=== PATIENT | female | born 1980 | race American Indian/Alaskan Native ===

== ENCOUNTER 2017-03-13 10:36 | Emergency (ER) | payer MEDICAID ==
[2017-03-13 11:00] VITALS: BP 156/97
[2017-03-13 11:25] LABS: Basophils % (Auto) 1.1 % (0.0-1.8); Eosinophils % (Auto) 2.8 % (0.0-4.3); Hematocrit 39.7 % (30.3-42.9); Hemoglobin 13.2 gm/dl (10.1-14.3); Mean Corpuscular HGB Conc 33 % (30-34); Mean Corpuscular Hemoglobin 32 pg (28-32); Mean Corpuscular Volume 96 fl (79-97); Platelet Count 254 K/mm3 (140-440); Red Blood Count 4.12 M/mm3 (3.65-5.03); Red Cell Distribution Width 13.6 % (13.2-15.2)
[2017-03-13 11:37] LABS: Alanine Aminotransferase 21 units/L (7-56); Albumin 3.9 g/dL (3.9-5); Albumin/Globulin Ratio 1.3 %; Alkaline Phosphatase 53 units/L (35-129); Anion Gap 18 mmol/L; BUN/Creatinine Ratio 18.33; Blood Urea Nitrogen 11 mg/dL (7-17); Calcium 8.7 mg/dL (8.4-10.2); Carbon Dioxide 21 mmol/L (22-30); Chloride 106.1 mmol/L (98-107); Glucose 90 mg/dL (65-100); Lipase 23 units/L (13-60); Potassium 3.9 mmol/L (3.6-5.0); Sodium 141 mmol/L (137-145); Total Protein 6.9 g/dL (6.3-8.2)
[2017-03-13 12:16] LABS: Bilirubin,Urine NEG (Negative); Blood,Urine NEG (Negative); Ketones,Urine NEG (Negative); Leukocyte Esterase,Urine TR (Negative); Mucus,Urine FEW /HPF; Nitrite,Urine NEG (Negative); Protein,Urine <15 mg/dL mg/dL (Negative)
== END 2017-03-13 12:30 | disposition left against medical advice (07) ==
LOC: ED 10:36
DX: R10.9 Unspecified abdominal pain (principal); Z53.21 Procedure and treatment not carried out due to patient leaving prior to being seen by health care provider
CPT/HCPCS: 36415; 80053; 81001; 83690; 84703; 85025

== ENCOUNTER 2018-03-02 21:20 | Emergency (ER) | payer MEDICAID ==
[2018-03-02 22:14] VITALS: BP 132/71
[2018-03-03] MEDS ORDERED: PERCOCET 5/325 PO ONE (03:01)
[2018-03-03] MEDS ORDERED: PERCOCET 5/325 ONE (03:04)
--- NOTE | 2018-03-03 03:33 | Emergency Department Report ---
ED ENT HPI - General Chief complaint: Dental/Oral Stated complaint: TOOTHACHE, LEFT SIDED SWELLING AND PAIN Time Seen by Provider: 03/03/18 03:28 Source: family Mode of arrival: Ambulatory Limitations: No Limitations - History of Present Illness Initial comments: 37-year-old -Citizen Of [place] female comes in complaining of dental pain that she has off and on for the last 3 years. 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 Patient denies any fever or chills no nausea no vomiting. She does report that the pain often keeps her up at night. She reports she is tried [id number] Tylenol and ibuprofen which she reports does not help much for pain. Patient reports the pain is probably an sharp in nature at times. MD complaint: tooth pain -: year(s) (3) Location: tooth # (10,11) Severity scale (0 -10): 8 Quality: stabbing, other (throbbing) Consistency: intermittent Worsens with: eating Context- Dental: history of dental caries, poor dental care Associated Symptoms: gum swelling, toothache - Related Data Home Medications Medication Instructions Recorded Confirmed Last Taken Diphenhydramine HCl [Sleep-Aid] 25 mg PO 04/27/13 04/29/13 04/28/13 23:00 Previous Rx's Medication Instructions Recorded Last Taken Type Ibuprofen [Motrin] 800 mg PO Q8H PRN #20 tablet 02/27/14 Unknown Rx Cyclobenzaprine [Flexeril 10mg] 10 mg PO TID PRN #14 tablet 08/23/14 Unknown Rx HYDROcodone/APAP 5-325 [[place] 1 each PO Q6HR PRN #14 tablet 08/23/14 Unknown Rx 5-325 mg TAB] Ibuprofen [Motrin 800 MG tab] 800 mg PO Q8HR PRN #30 tablet 03/03/18 Unknown Rx Penicillin Vk [Veetids TAB] 250 mg PO QID #40 tablet 03/03/18 Unknown Rx traMADol [Ultram 50 MG tab] 50 mg PO Q4HR PRN #12 tablet 03/03/18 Unknown Rx Allergies Allergy/AdvReac Type Severity Reaction Status Date / Time No Known Allergies Allergy Unverified 04/29/13 10:33 ED Dental HPI - General Chief complaint: Dental/Oral Stated complaint: TOOTHACHE, LEFT SIDED SWELLING AND PAIN Time Seen by Provider: 03/03/18 03:28 Source: family Mode of arrival: Ambulatory Limitations: No Limitations - Related Data Home Medications Medication Instructions Recorded Confirmed Last Taken Diphenhydramine HCl [Sleep-Aid] 25 mg PO 04/27/13 04/29/13 04/28/13 23:00 Previous Rx's Medication Instructions Recorded Last Taken Type Ibuprofen [Motrin] 800 mg PO Q8H PRN #20 tablet 02/27/14 Unknown Rx Cyclobenzaprine [Flexeril 10mg] 10 mg PO TID PRN #14 tablet 08/23/14 Unknown Rx HYDROcodone/APAP 5-325 [[place] 1 each PO Q6HR PRN #14 tablet 08/23/14 Unknown Rx 5-325 mg TAB] Ibuprofen [Motrin 800 MG tab] 800 mg PO Q8HR PRN #30 tablet 03/03/18 Unknown Rx Penicillin Vk [Veetids TAB] 250 mg PO QID #40 tablet 03/03/18 Unknown Rx traMADol [Ultram 50 MG tab] 50 mg PO Q4HR PRN #12 tablet 03/03/18 Unknown Rx Allergies Allergy/AdvReac Type Severity Reaction Status Date / Time No Known Allergies Allergy Unverified 04/29/13 10:33 ED Review of Systems ROS: Stated complaint: TOOTHACHE, LEFT SIDED SWELLING AND PAIN Other details as noted in HPI Comment: All other systems reviewed and negative ENT: dental pain ED Past Medical Hx - Past Medical History Hx Hypertension: No Hx Heart Attack/AMI: No Hx Liver Disease: No Hx Renal Disease: No Hx Sickle Cell Disease: No Hx Headaches / Migraines: Yes Hx Seizures: No Hx Psychiatric Treatment: Yes (depression, anxiety,PTSD) Hx Asthma: No Hx COPD: No Additional medical history: Obesity - Surgical History Hx Pacemaker: No Hx Internal Defibrillator: No Additional Surgical History: D&C X 2, ESure surgery - Social History Smoking Status: Current Every Day Smoker Substance Use Type: None - Medications Home Medications: Home Medications Medication Instructions Recorded Confirmed Last Taken Type Diphenhydramine HCl [Sleep-Aid] 25 mg PO 04/27/13 04/29/13 04/28/13 23:00 History Ibuprofen [Motrin] 800 mg PO Q8H PRN #20 tablet 08/02/14 Unknown Rx Cyclobenzaprine [Flexeril 10mg] 10 mg PO TID PRN #14 tablet 08/23/14 Unknown Rx HYDROcodone/APAP 5-325 [[place] 1 each PO Q6HR PRN #14 tablet 08/23/14 Unknown Rx 5-325 mg TAB] Ibuprofen [Motrin 800 MG tab] 800 mg PO Q8HR PRN #30 tablet 03/03/18 Unknown Rx Penicillin Vk [Veetids TAB] 250 mg PO QID #40 tablet 03/03/18 Unknown Rx traMADol [Ultram 50 MG tab] 50 mg PO Q4HR PRN #12 tablet 03/03/18 Unknown Rx ED Physical Exam - General Limitations: No Limitations General appearance: alert, in no apparent distress - Head Head exam: Present: atraumatic, normocephalic - ENT ENT exam: Present: mucous membranes moist - Expanded ENT Exam Expanded Teeth exam: Present: dental caries, gingival enlargement Throat exam: Negative: tonsillar erythema, tonsillomegaly - Neck Neck exam: Present: full ROM. Absent: tenderness, lymphadenopathy ED Course Vital Signs 03/02/18 22:09 Temperature 98.5 F Pulse Rate 84 Respiratory 16 Rate Blood Pressure 132/71 O2 Sat by Pulse 100 Oximetry ED Medical Decision Making - Medical Decision Making Patient has been evaluated at this provider fast track. Patient's given pain medication for pain management. Discharge patient home on penicillin and tramadol and ibuprofen and referral to dentistry. Critical care attestation.: If time is entered above; I have spent that time in minutes in the direct care of this critically ill patient, excluding procedure time. ED Disposition Clinical Impression: Dental abscess Disposition: DC- TO HOME OR SELFCARE Is pt being admited?: No Does the pt Need Aspirin: No Condition: Stable Instructions: Dental Abscess (ED), Trench Mouth (ED), Gingivitis (ED) Additional Instructions: These complete antibiotics as prescribed. Take pain medication as needed. Very importantly to follow up with dentistry as this is a chronic issue. Prescriptions: Ibuprofen [Motrin 800 MG tab] 800 mg PO Q8HR PRN #30 tablet PRN Reason: Pain Penicillin Vk [Veetids TAB] 250 mg PO QID #40 tablet traMADol [Ultram 50 MG tab] 50 mg PO Q4HR PRN #12 tablet PRN Reason: Pain Referrals: PRIMARY CARE, [Primary Care Provider] - 3-5 Days [facility] [Outside] - 3-5 Days [facility] [Outside] - 3-5 Days
== END 2018-03-03 03:28 | disposition home or self-care (01) ==
LOC: ED 21:20
DX: K04.7 Periapical abscess without sinus (principal); G43.909 Migraine, unspecified, not intractable, without status migrainosus; F17.200 Nicotine dependence, unspecified, uncomplicated
CPT/HCPCS: 99282

== ENCOUNTER 2018-03-08 13:57 | Emergency (ER) | payer MEDICAID ==
[2018-03-08 14:14] VITALS: BP 133/89
--- NOTE | 2018-03-08 15:45 | Emergency Department Report ---
ED ENT HPI - General Chief complaint: Dental/Oral Stated complaint: TOOTH ACHE/PAIN Time Seen by Provider: 03/08/18 15:30 Source: patient Mode of arrival: Ambulatory Limitations: No Limitations - History of Present Illness MD complaint: tooth pain (already on antibiotics medication) -: days(s) Severity: moderate Consistency: constant Context- Dental: history of dental caries - Related Data Home Medications Medication Instructions Recorded Confirmed Last Taken Diphenhydramine HCl [Sleep-Aid] 25 mg PO 04/27/13 04/29/13 04/28/13 23:00 Previous Rx's Medication Instructions Recorded Last Taken Type Ibuprofen [Motrin] 800 mg PO Q8H PRN #20 tablet 02/27/14 Unknown Rx Cyclobenzaprine [Flexeril 10mg] 10 mg PO TID PRN #14 tablet 08/23/14 Unknown Rx HYDROcodone/APAP 5-325 [[place] 1 each PO Q6HR PRN #14 tablet 08/23/14 Unknown Rx 5-325 mg TAB] Ibuprofen [Motrin 800 MG tab] 800 mg PO Q8HR PRN #30 tablet 03/03/18 Unknown Rx Penicillin Vk [Veetids TAB] 250 mg PO QID #40 tablet 03/03/18 Unknown Rx traMADol [Ultram 50 MG tab] 50 mg PO Q4HR PRN #12 tablet 03/03/18 Unknown Rx Allergies Allergy/AdvReac Type Severity Reaction Status Date / Time No Known Allergies Allergy Unverified 04/29/13 10:33 ED Dental HPI - General Chief complaint: Dental/Oral Stated complaint: TOOTH ACHE/PAIN Time Seen by Provider: 03/08/18 15:30 Source: patient Mode of arrival: Ambulatory Limitations: No Limitations - Related Data Home Medications Medication Instructions Recorded Confirmed Last Taken Diphenhydramine HCl [Sleep-Aid] 25 mg PO 04/27/13 04/29/13 04/28/13 23:00 Previous Rx's Medication Instructions Recorded Last Taken Type Ibuprofen [Motrin] 800 mg PO Q8H PRN #20 tablet 02/27/14 Unknown Rx Cyclobenzaprine [Flexeril 10mg] 10 mg PO TID PRN #14 tablet 08/23/14 Unknown Rx HYDROcodone/APAP 5-325 [[place] 1 each PO Q6HR PRN #14 tablet 08/23/14 Unknown Rx 5-325 mg TAB] Ibuprofen [Motrin 800 MG tab] 800 mg PO Q8HR PRN #30 tablet 03/03/18 Unknown Rx Penicillin Vk [Veetids TAB] 250 mg PO QID #40 tablet 03/03/18 Unknown Rx traMADol [Ultram 50 MG tab] 50 mg PO Q4HR PRN #12 tablet 03/03/18 Unknown Rx Allergies Allergy/AdvReac Type Severity Reaction Status Date / Time No Known Allergies Allergy Unverified 04/29/13 10:33 ED Review of Systems ROS: Stated complaint: TOOTH ACHE/PAIN Other details as noted in HPI Comment: All other systems reviewed and negative Constitutional: denies: chills, fever Respiratory: denies: cough, orthopnea, shortness of breath Cardiovascular: denies: chest pain Neurological: denies: headache, weakness ED Past Medical Hx - Past Medical History Hx Hypertension: No Hx Heart Attack/AMI: No Hx Liver Disease: No Hx Renal Disease: No Hx Sickle Cell Disease: No Hx Headaches / Migraines: Yes Hx Seizures: No Hx Psychiatric Treatment: Yes (depression, anxiety,PTSD) Hx Asthma: No Hx COPD: No Additional medical history: Obesity - Surgical History Hx Pacemaker: No Hx Internal Defibrillator: No Additional Surgical History: D&C X 2, ESure surgery - Social History Smoking Status: Current Every Day Smoker Substance Use Type: None - Medications Home Medications: Home Medications Medication Instructions Recorded Confirmed Last Taken Type Diphenhydramine HCl [Sleep-Aid] 25 mg PO 04/27/13 04/29/13 04/28/13 23:00 History Ibuprofen [Motrin] 800 mg PO Q8H PRN #20 tablet 02/27/14 Unknown Rx Cyclobenzaprine [Flexeril 10mg] 10 mg PO TID PRN #14 tablet 08/23/14 Unknown Rx HYDROcodone/APAP 5-325 [[place] 1 each PO Q6HR PRN #14 tablet 08/23/14 Unknown Rx 5-325 mg TAB] Ibuprofen [Motrin 800 MG tab] 800 mg PO Q8HR PRN #30 tablet 03/03/18 Unknown Rx Penicillin Vk [Veetids TAB] 250 mg PO QID #40 tablet 03/03/18 Unknown Rx traMADol [Ultram 50 MG tab] 50 mg PO Q4HR PRN #12 tablet 03/03/18 Unknown Rx ED Physical Exam - General Limitations: No Limitations General appearance: alert, in no apparent distress - Head Head exam: Present: atraumatic, normocephalic - ENT ENT exam: Present: other (dental caries multiple teeth) - Respiratory Respiratory exam: Present: normal lung sounds bilaterally - Cardiovascular Cardiovascular Exam: Present: regular rate - GI/Abdominal GI/Abdominal exam: Present: soft. Absent: distended, tenderness, guarding ED Course Vital Signs 03/08/18 14:06 Temperature 98.3 F Pulse Rate 76 Respiratory 16 Rate Blood Pressure 133/89 O2 Sat by Pulse 100 Oximetry Critical care attestation.: If time is entered above; I have spent that time in minutes in the direct care of this critically ill patient, excluding procedure time. ED Disposition Clinical Impression: Dental caries Disposition: DC-01 TO HOME OR SELFCARE Is pt being admited?: No Condition: Stable Instructions: Dental Caries (ED) Referrals: PRIMARY CARE, [Primary Care Provider] - 3-5 Days
== END 2018-03-08 16:03 | disposition home or self-care (01) ==
LOC: ED 13:57
DX: K02.9 Dental caries, unspecified (principal); G43.909 Migraine, unspecified, not intractable, without status migrainosus; F17.200 Nicotine dependence, unspecified, uncomplicated
CPT/HCPCS: 99281

== ENCOUNTER 2018-08-05 12:23 | Emergency (ER) | payer MEDICAID ==
[2018-08-05 12:38] VITALS: BP 149/97
[2018-08-05] MEDS ORDERED: ULTRAM PO ONE (14:09)
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
--- NOTE | 2018-08-05 15:14 | XRay Report ---
LEFT KNEE, 3 views: History: Pain. The bony architecture is intact without evidence of fracture or dislocation. No significant soft tissue abnormality is seen. IMPRESSION: Normal left knee.
--- NOTE | 2018-08-05 15:18 | XRay Report ---
LEFT FOOT, 3 views: History: Pain. The bony architecture is intact. Bony alignment is normal. No soft tissue abnormalities are seen. The joint spaces appear preserved. IMPRESSION: Normal left foot.
== END 2018-08-05 16:02 | disposition home or self-care (01) ==
LOC: ED 12:23
DX: M25.561 Pain in right knee (principal); G43.909 Migraine, unspecified, not intractable, without status migrainosus; F41.9 Anxiety disorder, unspecified; F32.9 Major depressive disorder, single episode, unspecified; F43.10 Post-traumatic stress disorder, unspecified; F17.200 Nicotine dependence, unspecified, uncomplicated; Z79.899 Other long term (current) drug therapy
CPT/HCPCS: 99283

== ENCOUNTER 2019-08-05 22:02 | Inpatient (IN) | payer MEDICAID, OTHER ==
[2019-08-05] MEDS ORDERED: SODIUM CHLORIDE 0.9% 1000 ML 1,000 ML IV ONE (23:23)
--- NOTE | 2019-08-05 23:29 | Emergency Department Report ---
ED Altered Mental Status HPI - General Chief Complaint: Overdose Stated Complaint: AMS Time Seen by Provider: 08/05/19 23:16 Source: family Mode of arrival: Stretcher Limitations: No Limitations - History of Present Illness Initial Comments: Patient is a 38 years old moderately obese female with history of post traumatic stress disorder, depression and anxiety. Patient brought to the emergency room via EMS for evaluation of altered mental status. Patient has been stated that he think that she overdosed on clonidine however patient hospital and did not see patient taking the medication. He stated that she was completely fine just 10 minutes before she went to bed and then he saw a stumbling going to the bathroom with decreased responsiveness. denied any emotional stress or thoughts of suicide by the patient recently. MD Complaint: altered mental status, decreased responsiveness -: hour(s) (3) Severity: moderate - Related Data Home Medications Medication Instructions Recorded Confirmed Last Taken Diphenhydramine HCl [Sleep-Aid] 25 mg PO 04/27/13 04/29/13 04/28/13 23:00 Previous Rx's Medication Instructions Recorded Last Taken Type Ibuprofen [Motrin] 800 mg PO Q8H PRN #20 tablet 02/27/14 Unknown Rx Cyclobenzaprine [Flexeril 10mg] 10 mg PO TID PRN #14 tablet 08/23/14 Unknown Rx HYDROcodone/APAP 5-325 [[place] 1 each PO Q6HR PRN #14 tablet 08/23/14 Unknown Rx 5-325 mg TAB] Ibuprofen [Motrin 800 MG tab] 800 mg PO Q8HR PRN #30 tablet 03/03/18 Unknown Rx Penicillin Vk [Veetids TAB] 250 mg PO QID #40 tablet 03/03/18 Unknown Rx traMADoL [Ultram 50 MG tab] 50 mg PO Q4HR PRN #12 tablet 03/03/18 Unknown Rx Ondansetron [Zofran Odt] 4 mg PO Q8HR PRN #14 tab.rapdis 03/08/18 Unknown Rx traMADoL [Ultram 50 MG tab] 50 mg PO Q4HR PRN #14 tablet 03/08/18 Unknown Rx HYDROcodone/APAP 5-325 [[place] 1 each PO Q6HR PRN #12 tablet 08/05/18 Unknown Rx 5/325] Allergies Allergy/AdvReac Type Severity Reaction Status Date / Time No Known Allergies Allergy Verified 06/16/18 18:35 ED Review of Systems ROS: Stated complaint: AMS Other details as noted in HPI Comment: Unobtainable due to pts medical conditions ED Past Medical Hx - Past Medical History Previous Medical History?: Yes Hx Hypertension: No Hx Heart Attack/AMI: No Hx Liver Disease: No Hx Renal Disease: No Hx Sickle Cell Disease: No Hx Headaches / Migraines: Yes Hx Seizures: No Hx Psychiatric Treatment: Yes (depression, anxiety,PTSD) Hx Asthma: No Hx COPD: No Additional medical history: Obesity - Surgical History Past Surgical History?: Yes Hx Pacemaker: No Hx Internal Defibrillator: No Additional Surgical History: D&C X 2, Essure surgery - Social History Smoking Status: Current Every Day Smoker - Medications Home Medications: Home Medications Medication Instructions Recorded Confirmed Last Taken Type Diphenhydramine HCl [Sleep-Aid] 25 mg PO 04/27/13 04/29/13 04/28/13 23:00 History Ibuprofen [Motrin] 800 mg PO Q8H PRN #20 tablet 02/27/14 Unknown Rx Cyclobenzaprine [Flexeril 10mg] 10 mg PO TID PRN #14 tablet 08/23/14 Unknown Rx HYDROcodone/APAP 5-325 [[place] 1 each PO Q6HR PRN #14 tablet 08/23/14 Unknown Rx 5-325 mg TAB] Ibuprofen [Motrin 800 MG tab] 800 mg PO Q8HR PRN #30 tablet 03/03/18 Unknown Rx Penicillin Vk [Veetids TAB] 250 mg PO QID #40 tablet 03/03/18 Unknown Rx traMADoL [Ultram 50 MG tab] 50 mg PO Q4HR PRN #12 tablet 03/03/18 Unknown Rx Ondansetron [Zofran Odt] 4 mg PO Q8HR PRN #14 tab.rapdis 03/08/18 Unknown Rx traMADoL [Ultram 50 MG tab] 50 mg PO Q4HR PRN #14 tablet 03/08/18 Unknown Rx HYDROcodone/APAP 5-325 [[place] 1 each PO Q6HR PRN #12 tablet 08/05/18 Unknown Rx 5/325] ED Physical Exam - General Limitations: No Limitations General appearance: in no apparent distress, obtunded - Head Head exam: Present: atraumatic, normocephalic, normal inspection - Eye Eye exam: Present: normal appearance - ENT ENT exam: Present: normal exam, normal orophraynx, mucous membranes moist - Neck Neck exam: Present: normal inspection, full ROM. Absent: tenderness, meningismus, lymphadenopathy, thyromegaly - Respiratory Respiratory exam: Present: normal lung sounds bilaterally - Cardiovascular Cardiovascular Exam: Present: regular rate, normal rhythm, normal heart sounds - GI/Abdominal GI/Abdominal exam: Present: soft, normal bowel sounds. Absent: distended, tenderness, guarding, rebound, rigid, organomegaly, mass, bruit, pulsatile mass, hernia - Extremities Exam Extremities exam: Present: normal inspection, full ROM, normal capillary refill. Absent: tenderness, pedal edema, calf tenderness - Back Exam Back exam: Present: normal inspection, full ROM. Absent: CVA tenderness (R), CVA tenderness (L), muscle spasm, paraspinal tenderness, vertebral tenderness - Neurological Exam Neurological exam: Present: altered - Skin Skin exam: Present: warm, intact, normal color ED Course Vital Signs 08/05/19 08/05/19 08/05/19 22:15 22:30 22:45 Temperature 97.8 F Pulse Rate 132 H 136 H 129 H Respiratory 24 22 23 Rate Blood Pressure 132/96 132/56 117/62 Blood Pressure 132/96 [Left] O2 Sat by Pulse 94 95 92 Oximetry 08/05/19 08/05/19 08/05/19 23:00 23:15 23:31 Temperature Pulse Rate 128 H 132 H 127 H Respiratory 25 H 19 25 H Rate Blood Pressure 117/62 129/81 126/86 Blood Pressure [Left] O2 Sat by Pulse 93 95 97 Oximetry 08/05/19 08/06/19 08/06/19 23:45 00:00 00:17 Temperature Pulse Rate 127 H 119 H 116 H Respiratory 21 21 19 Rate Blood Pressure 115/76 128/77 128/77 Blood Pressure [Left] O2 Sat by Pulse 98 99 100 Oximetry 08/06/19 08/06/19 08/06/19 00:30 00:45 01:01 Temperature Pulse Rate 113 H 115 H 117 H Respiratory 20 24 20 Rate Blood Pressure 129/81 136/91 136/91 Blood Pressure [Left] O2 Sat by Pulse 99 99 100 Oximetry 08/06/19 08/06/19 08/06/19 01:15 01:31 03:20 Temperature Pulse Rate 117 H 118 H 121 H Respiratory 22 25 H 25 H Rate Blood Pressure 150/109 154/103 Blood Pressure 135/87 [Left] O2 Sat by Pulse 100 100 100 Oximetry - Lab Data Result diagrams: 08/05/19 23:36 08/05/19 23:36 Lab Results 08/05/19 08/05/19 08/05/19 Range/Units 23:36 23:36 23:36 WBC 10.0 (4.5-11.0) K/mm3 RBC 4.11 (3.65-5.03) M/mm3 Hgb 13.3 (10.1-14.3) gm/dl Hct 38.8 (30.3-42.9) % MCV 94 (79-97) fl MCH 32 (28-32) pg MCHC 34 (30-34) % RDW 14.1 (13.2-15.2) % Plt Count 240 (140-440) K/mm3 Lymph % (Auto) 23.5 (13.4-35.0) % [place] % (Auto) 4.9 (0.0-7.3) % Eos % (Auto) 0.9 (0.0-4.3) % Baso % (Auto) 0.8 (0.0-1.8) % Lymph # 2.3 (1.2-5.4) K/mm3 [place] # 0.5 (0.0-0.8) K/mm3 Eos # 0.1 (0.0-0.4) K/mm3 Baso # 0.1 (0.0-0.1) K/mm3 Seg Neutrophils % 69.9 (40.0-70.0) % Seg Neutrophils # 7.0 (1.8-7.7) K/mm3 PT 13.2 (12.2-14.9) Sec. INR 0.99 (0.87-1.13) APTT 25.2 (24.2-36.6) Sec. D-Dimer 258.10 H (0-234) ng/mlDDU Sodium 139 (137-145) mmol/L Potassium 3.7 (3.6-5.0) mmol/L Chloride 105.4 (98-107) mmol/L Carbon Dioxide 19 L (22-30) mmol/L Anion Gap 18 mmol/L BUN 7 (7-17) mg/dL Creatinine 0.6 L (0.7-1.2) mg/dL Estimated GFR > 60 ml/min BUN/Creatinine Ratio 12 % Glucose 170 H (65-100) mg/dL Lactic Acid (0.7-2.0) mmol/L Calcium 9.2 (8.4-10.2) mg/dL Total Bilirubin 0.20 (0.1-1.2) mg/dL Direct Bilirubin < 0.2 (0-0.2) mg/dL Indirect Bilirubin 0.0 mg/dL AST 21 (5-40) units/L ALT 23 (7-56) units/L Alkaline Phosphatase 62 (35-129) units/L Ammonia (25-60) umol/L Total Creatine Kinase 103 (30-135) units/L Troponin T < 0.010 (0.00-0.029) ng/mL Total Protein 6.4 (6.3-8.2) g/dL Albumin 4.0 (3.9-5) g/dL Albumin/Globulin Ratio 1.7 % HCG, Qual (Negative) Urine Color (Yellow) Urine Turbidity (Clear) Urine pH (5.0-7.0) Ur Specific [place] (1.003-1.030) Urine Protein (Negative) mg/dL Urine Glucose (UA) (Negative) mg/dL Urine Ketones (Negative) mg/dL Urine Blood (Negative) Urine Nitrite (Negative) Urine Bilirubin (Negative) Urine Urobilinogen (<2.0) mg/dL Ur Leukocyte Esterase (Negative) Urine WBC (Auto) (0.0-6.0) /HPF Urine RBC (Auto) (0.0-6.0) /HPF U Epithel Cells (Auto) (0-13.0) /HPF Urine Bacteria (Auto) (Negative) /HPF Urine Mucus /HPF Salicylates (2.8-20.0) mg/dL Urine Opiates Screen Urine Methadone Screen Acetaminophen (10.0-30.0) ug/mL Ur Barbiturates Screen Ur Phencyclidine Scrn Ur Amphetamines Screen U Benzodiazepines Scrn Urine Cocaine Screen U Marijuana (THC) Screen Drugs of Abuse Note Plasma/Serum Alcohol (0-0.07) % 08/05/19 08/05/19 08/05/19 Range/Units 23:36 23:36 23:36 WBC (4.5-11.0) K/mm3 RBC (3.65-5.03) M/mm3 Hgb (10.1-14.3) gm/dl Hct (30.3-42.9) % MCV (79-97) fl MCH (28-32) pg MCHC (30-34) % RDW (13.2-15.2) % Plt Count (140-440) K/mm3 Lymph % (Auto) (13.4-35.0) % [place] % (Auto) (0.0-7.3) % Eos % (Auto) (0.0-4.3) % Baso % (Auto) (0.0-1.8) % Lymph # (1.2-5.4) K/mm3 [place] # (0.0-0.8) K/mm3 Eos # (0.0-0.4) K/mm3 Baso # (0.0-0.1) K/mm3 Seg Neutrophils % (40.0-70.0) % Seg Neutrophils # (1.8-7.7) K/mm3 PT (12.2-14.9) Sec. INR (0.87-1.13) APTT (24.2-36.6) Sec. D-Dimer (0-234) ng/mlDDU Sodium (137-145) mmol/L Potassium (3.6-5.0) mmol/L Chloride (98-107) mmol/L Carbon Dioxide (22-30) mmol/L Anion Gap mmol/L BUN (7-17) mg/dL Creatinine (0.7-1.2) mg/dL Estimated GFR ml/min BUN/Creatinine Ratio % Glucose (65-100) mg/dL Lactic Acid 0.90 (0.7-2.0) mmol/L Calcium (8.4-10.2) mg/dL Total Bilirubin (0.1-1.2) mg/dL Direct Bilirubin (0-0.2) mg/dL Indirect Bilirubin mg/dL AST (5-40) units/L ALT (7-56) units/L Alkaline Phosphatase (35-129) units/L Ammonia 30.0 (25-60) umol/L Total Creatine Kinase (30-135) units/L Troponin T (0.00-0.029) ng/mL Total Protein (6.3-8.2) g/dL Albumin (3.9-5) g/dL Albumin/Globulin Ratio % HCG, Qual (Negative) Urine Color (Yellow) Urine Turbidity (Clear) Urine pH (5.0-7.0) Ur Specific [place] (1.003-1.030) Urine Protein (Negative) mg/dL Urine Glucose (UA) (Negative) mg/dL Urine Ketones (Negative) mg/dL Urine Blood (Negative) Urine Nitrite (Negative) Urine Bilirubin (Negative) Urine Urobilinogen (<2.0) mg/dL Ur Leukocyte Esterase (Negative) Urine WBC (Auto) (0.0-6.0) /HPF Urine RBC (Auto) (0.0-6.0) /HPF U Epithel Cells (Auto) (0-13.0) /HPF Urine Bacteria (Auto) (Negative) /HPF Urine Mucus /HPF Salicylates < 0.3 L (2.8-20.0) mg/dL Urine Opiates Screen Urine Methadone Screen Acetaminophen (10.0-30.0) ug/mL Ur Barbiturates Screen Ur Phencyclidine Scrn Ur Amphetamines Screen U Benzodiazepines Scrn Urine Cocaine Screen U Marijuana (THC) Screen Drugs of Abuse Note Plasma/Serum Alcohol (0-0.07) % 08/05/19 08/05/19 08/05/19 Range/Units 23:36 23:36 23:41 WBC (4.5-11.0) K/mm3 RBC (3.65-5.03) M/mm3 Hgb (10.1-14.3) gm/dl Hct (30.3-42.9) % MCV (79-97) fl MCH (28-32) pg MCHC (30-34) % RDW (13.2-15.2) % Plt Count (140-440) K/mm3 Lymph % (Auto) (13.4-35.0) % [place] % (Auto) (0.0-7.3) % Eos % (Auto) (0.0-4.3) % Baso % (Auto) (0.0-1.8) % Lymph # (1.2-5.4) K/mm3 [place] # (0.0-0.8) K/mm3 Eos # (0.0-0.4) K/mm3 Baso # (0.0-0.1) K/mm3 Seg Neutrophils % (40.0-70.0) % Seg Neutrophils # (1.8-7.7) K/mm3 PT (12.2-14.9) Sec. INR (0.87-1.13) APTT (24.2-36.6) Sec. D-Dimer (0-234) ng/mlDDU Sodium (137-145) mmol/L Potassium (3.6-5.0) mmol/L Chloride (98-107) mmol/L Carbon Dioxide (22-30) mmol/L Anion Gap mmol/L BUN (7-17) mg/dL Creatinine (0.7-1.2) mg/dL Estimated GFR ml/min BUN/Creatinine Ratio % Glucose (65-100) mg/dL Lactic Acid (0.7-2.0) mmol/L Calcium (8.4-10.2) mg/dL Total Bilirubin (0.1-1.2) mg/dL Direct Bilirubin (0-0.2) mg/dL Indirect Bilirubin mg/dL AST (5-40) units/L ALT (7-56) units/L Alkaline Phosphatase (35-129) units/L Ammonia (25-60) umol/L Total Creatine Kinase (30-135) units/L Troponin T (0.00-0.029) ng/mL Total Protein (6.3-8.2) g/dL Albumin (3.9-5) g/dL Albumin/Globulin Ratio % HCG, Qual Negative (Negative) Urine Color (Yellow) Urine Turbidity (Clear) Urine pH (5.0-7.0) Ur Specific [place] (1.003-1.030) Urine Protein (Negative) mg/dL Urine Glucose (UA) (Negative) mg/dL Urine Ketones (Negative) mg/dL Urine Blood (Negative) Urine Nitrite (Negative) Urine Bilirubin (Negative) Urine Urobilinogen (<2.0) mg/dL Ur Leukocyte Esterase (Negative) Urine WBC (Auto) (0.0-6.0) /HPF Urine RBC (Auto) (0.0-6.0) /HPF U Epithel Cells (Auto) (0-13.0) /HPF Urine Bacteria (Auto) (Negative) /HPF Urine Mucus /HPF Salicylates (2.8-20.0) mg/dL Urine Opiates Screen Urine Methadone Screen Acetaminophen < 5.0 L (10.0-30.0) ug/mL Ur Barbiturates Screen Ur Phencyclidine Scrn Ur Amphetamines Screen U Benzodiazepines Scrn Urine Cocaine Screen U Marijuana (THC) Screen Drugs of Abuse Note Plasma/Serum Alcohol < 0.01 (0-0.07) % 08/06/19 08/06/19 Range/Units 01:06 01:06 WBC (4.5-11.0) K/mm3 RBC (3.65-5.03) M/mm3 Hgb (10.1-14.3) gm/dl Hct (30.3-42.9) % MCV (79-97) fl MCH (28-32) pg MCHC (30-34) % RDW (13.2-15.2) % Plt Count (140-440) K/mm3 Lymph % (Auto) (13.4-35.0) % [place] % (Auto) (0.0-7.3) % Eos % (Auto) (0.0-4.3) % Baso % (Auto) (0.0-1.8) % Lymph # (1.2-5.4) K/mm3 [place] # (0.0-0.8) K/mm3 Eos # (0.0-0.4) K/mm3 Baso # (0.0-0.1) K/mm3 Seg Neutrophils % (40.0-70.0) % Seg Neutrophils # (1.8-7.7) K/mm3 PT (12.2-14.9) Sec. INR (0.87-1.13) APTT (24.2-36.6) Sec. D-Dimer (0-234) ng/mlDDU Sodium (137-145) mmol/L Potassium (3.6-5.0) mmol/L Chloride (98-107) mmol/L Carbon Dioxide (22-30) mmol/L Anion Gap mmol/L BUN (7-17) mg/dL Creatinine (0.7-1.2) mg/dL Estimated GFR ml/min BUN/Creatinine Ratio % Glucose (65-100) mg/dL Lactic Acid (0.7-2.0) mmol/L Calcium (8.4-10.2) mg/dL Total Bilirubin (0.1-1.2) mg/dL Direct Bilirubin (0-0.2) mg/dL Indirect Bilirubin mg/dL AST (5-40) units/L ALT (7-56) units/L Alkaline Phosphatase (35-129) units/L Ammonia (25-60) umol/L Total Creatine Kinase (30-135) units/L Troponin T (0.00-0.029) ng/mL Total Protein (6.3-8.2) g/dL Albumin (3.9-5) g/dL Albumin/Globulin Ratio % HCG, Qual (Negative) Urine Color Yellow (Yellow) Urine Turbidity Slightly-cloudy (Clear) Urine pH 5.0 (5.0-7.0) Ur Specific [place] 1.012 (1.003-1.030) Urine Protein <15 mg/dl (Negative) mg/dL Urine Glucose (UA) Neg (Negative) mg/dL Urine Ketones Tr (Negative) mg/dL Urine Blood Neg (Negative) Urine Nitrite Neg (Negative) Urine Bilirubin Neg (Negative) Urine Urobilinogen < 2.0 (<2.0) mg/dL Ur Leukocyte Esterase Tr (Negative) Urine WBC (Auto) 5.0 (0.0-6.0) /HPF Urine RBC (Auto) 1.0 (0.0-6.0) /HPF U Epithel Cells (Auto) 4.0 (0-13.0) /HPF Urine Bacteria (Auto) 1+ (Negative) /HPF Urine Mucus Few /HPF Salicylates (2.8-20.0) mg/dL Urine Opiates Screen Presumptive negative Urine Methadone Screen Presumptive negative Acetaminophen (10.0-30.0) ug/mL Ur Barbiturates Screen Presumptive negative Ur Phencyclidine Scrn Presumptive negative Ur Amphetamines Screen Presumptive negative U Benzodiazepines Scrn Presumptive negative Urine Cocaine Screen Presumptive negative U Marijuana (THC) Screen Presumptive negative Drugs of Abuse Note Disclamer Plasma/Serum Alcohol (0-0.07) % - EKG Data -: EKG Interpreted by Nh EKG shows normal: sinus rhythm Rate: tachycardia Interpretation: no acute changes - Radiology Data Radiology results: report reviewed - Medical Decision Making Patient is a 38 years old moderately obese female with history of post traumatic stress disorder, depression and anxiety. Patient brought to the emergency room via EMS for evaluation of altered mental status. Patient has been stated that he think that she overdosed on clonidine however patient hospital and did not see patient taking the medication. He stated that she was completely fine just 10 minutes before she went to bed and then he saw a stumbling going to the bathroom with decreased responsiveness. denied any emotional stress or thoughts of suicide by the patient recently. Patient remained obtunded except for. Of agitation while she was in the CT scan for which patient received Ativan 2 mg IV. Labs reviewed and is unremarkable including ABG. CT brain is negative for acute finding. CTA chest is negative for pulmonary embolism or any other pathology. Poison control contacted and advised to observe for 24 hours. I discussed the patient with Dr. Ashton, he agreed to admit the patient to [facility] for further management. Critical Care Time: Yes Critical care time in (mins) excluding proc time.: 30 Critical care attestation.: If time is entered above; I have spent that time in minutes in the direct care of this critically ill patient, excluding procedure time. ED Disposition Clinical Impression: Altered mental status, Drug overdose Disposition: [id number] OP ADMIT IP TO THIS HOSP Is pt being admited?: Yes Condition: Stable Referrals: GHANSHYAM BOWENS MD [Primary Care Provider] - 3-5 Days
[2019-08-05 23:53] LABS: Basophils # (Auto) 0.1 K/mm3 (0.0-0.1); Basophils % (Auto) 0.8 % (0.0-1.8); Eosinophils # (Auto) 0.1 K/mm3 (0.0-0.4); Eosinophils % (Auto) 0.9 % (0.0-4.3); Hematocrit 38.8 % (30.3-42.9); Hemoglobin 13.3 gm/dl (10.1-14.3); Lymphocytes # (Auto) 2.3 K/mm3 (1.2-5.4); Lymphocytes % (Auto) 23.5 % (13.4-35.0); Mean Corpuscular HGB Conc 34 % (30-34); Mean Corpuscular Volume 94 fl (79-97); Monocytes # (Auto) 0.5 K/mm3 (0.0-0.8); Monocytes % (Auto) 4.9 % (0.0-7.3); Red Blood Count 4.11 M/mm3 (3.65-5.03); Red Cell Distribution Width 14.1 % (13.2-15.2)
[2019-08-06 00:08] LABS: Platelet Count 240 K/mm3 (140-440)
[2019-08-06 00:11] LABS: Alanine Aminotransferase 23 units/L (7-56); BUN/Creatinine Ratio 12; Blood Urea Nitrogen 7 mg/dL (7-17); Calcium 9.2 mg/dL (8.4-10.2); Hemolysis Index 10
[2019-08-06 00:13] LABS: INR 0.99 (0.87-1.13)
[2019-08-06 00:14] LABS: Partial Thromboplastin Time 25.2 Sec. (24.2-36.6)
[2019-08-06 00:27] LABS: Bilirubin,Direct < 0.2 mg/dL (0-0.2)
[2019-08-06 01:36] LABS: Bacteria,Urine 1+ /HPF (Negative); Bilirubin,Urine NEG (Negative); Blood,Urine NEG (Negative); Color,Urine Yellow (Yellow); Mucus,Urine FEW /HPF; Protein,Urine <15 mg/dL mg/dL (Negative); Urobilinogen,Urine < 2.0 mg/dL (<2.0)
[2019-08-06 01:51] LABS: Amphetamine Screen,Urine PRESUMPTIVE NEGATIVE; Benzodiazepines Screen,Urine PRESUMPTIVE NEGATIVE; Cannabinoid Screen,Urine PRESUMPTIVE NEGATIVE; Cocaine Screen,Urine PRESUMPTIVE NEGATIVE; Methadone Screen,Urine PRESUMPTIVE NEGATIVE; Opiate Screen,Urine PRESUMPTIVE NEGATIVE
[2019-08-06] MEDS ORDERED: LORazepam 2 MG/ML VIAL ONE (01:51)
[2019-08-06] MEDS ORDERED: LORazepam 2 MG/ML VIAL IV ONE (01:52)
--- NOTE | 2019-08-06 02:43 | Cat Scan Report ---
CTA CHEST WITH IV CONTRAST INDICATION: Shortness of breath. TECHNIQUE: Axial CT images were obtained through the chest after injection of IV contrast. Coronal oblique 2-D reconstruction images were produced. 3 plane MIP reconstruction images were produced at an [email or web address] workstation. All CTs at this facility utilize dose reduction techniques including automated expos ure control, iterative reconstruction and weight based dosing when appropriate to reduce patient radi ation dose to as low as reasonable achievable. COMPARISON: None. FINDINGS: Evaluation is somewhat limited due to patient body habitus and timing of contrast bolus. No large ann-marie tral filling defect is seen within the pulmonary arteries to suggest pulmonary embolism. The heart is normal in size. Evaluation of the lung parenchyma demonstrates bibasilar atelectasis. Limited imaging of the upper abdomen demonstrates moderately decreased attenuation of the hepatic par enchyma. Evaluation of bony structures demonstrates no evidence of acute bony abnormality. IMPRESSION: 1. Technically limited study without evidence of pulmonary embolism or acute parenchymal process. Signer Name: Pamela Del Valle MD Signed: 08/06/2019 2:39 AM Workstation Name: [id number]
--- NOTE | 2019-08-06 02:45 | Cat Scan Report ---
Examination: CT of the head without contrast Clinical information: Altered mental status Comparison: None Technical: Multiple axial CT images of the head were obtained without intravenous contrast. Sagittal and coronal reformats were obtained. All CTs at this facility utilize dose reduction techniques inc luding automated exposure control, iterative reconstruction and weight based dosing when appropriate to reduce patient radiation dose to as low as reasonable achievable. Findings: Evaluation is somewhat limited due to patient motion artifact. Given this limitation, no la rge intracranial hemorrhage is visualized. The ventricular system is normal in size. Evaluation of bony structures demonstrates no evidence of acute bony abnormality. The visualized para nasal sinuses and mastoid air cells are clear. Impression: 1. No CT evidence of acute intracranial process. Signer Name: Pamela Del Valle MD Signed: 08/06/2019 2:41 AM Workstation Name: [id number]
[2019-08-06] MEDS ORDERED: SODIUM CHLORIDE 0.9% 1000 ML 1,000 ML IV ONE (02:50)
--- NOTE | 2019-08-06 03:43 | History and Physical Report ---
History of Present Illness Date of examination: 08/06/19 Date of admission: 08/06/19 Chief complaint: "Overdose per EMS History of present illness: Patient is a 38-year-old female with a past medical history of PTSD, depression and anxiety who presents to ER via EMS for overdose. EMS was reportedly called by boyfriend after patient was found to be weak and confused after saying that she was heading to the bathroom. Boyfriend reported that patient may have possible overdosed on prescribed meds of clonidine 0.1mg, amitriptyline 100 mg, Wellbutrin 200 mg and loratadine 10 mg. Poison control was called by the ER, patient drowsy, but arousable. Will admit to [facility] for monitoring. Past History Past Medical History: other (Unobtainable due to mental status) Past Surgical History: Other (Unobtainable due to mental status) Social history: other (Unobtainable due to mental status) Family history: other (Unobtainable due to mental status) Medications and Allergies Allergies Allergy/AdvReac Type Severity Reaction Status Date / Time No Known Allergies Allergy Verified 06/16/18 18:35 Home Medications Medication Instructions Recorded Confirmed Last Taken Type Diphenhydramine HCl [Sleep-Aid] 25 mg PO 04/27/13 04/29/13 04/28/13 23:00 Histo ry Ibuprofen [Motrin] 800 mg PO Q8H PRN #20 tablet 02/27/14 Unknown Rx Cyclobenzaprine [Flexeril 10mg] 10 mg PO TID PRN #14 tablet 08/23/14 Unknown Rx HYDROcodone/APAP 5-325 [[place] 1 each PO Q6HR PRN #14 tablet 08/23/14 Unknown Rx 5-325 mg TAB] Ibuprofen [Motrin 800 MG tab] 800 mg PO Q8HR PRN #30 tablet 03/03/18 Unknown Rx Penicillin Vk [Veetids TAB] 250 mg PO QID #40 tablet 03/03/18 Unknown Rx traMADoL [Ultram 50 MG tab] 50 mg PO Q4HR PRN #12 tablet 03/03/18 Unknown Rx Ondansetron [Zofran Odt] 4 mg PO Q8HR PRN #14 tab.rapdis 03/08/18 Unknown Rx traMADoL [Ultram 50 MG tab] 50 mg PO Q4HR PRN #14 tablet 03/08/18 Unknown Rx HYDROcodone/APAP 5-325 [[place] 1 each PO Q6HR PRN #12 tablet 08/05/18 Unknown Rx 5/325] Active Meds: Active Medications Sodium Chloride (Nacl 0.9% 1000 Ml) 1,000 mls @ 250 mls/hr IV ONCE ONE Stop: 08/06/19 06:49 Review of Systems ROS unobtainable: due to mental status Exam - Constitutional Vitals: Temp Pulse Resp BP Pulse Ox 97.8 F 121 H 25 H 135/87 100 08/05/19 22:15 08/06/19 03:20 08/06/19 03:20 08/06/19 03:20 08/06/19 03:20 General appearance: Present: obese - Respiratory Respiratory: bilateral: diminished - Cardiovascular Heart rate: 113 Rhythm: regular - Abdominal General gastrointestinal: Present: soft - Integumentary Integumentary: Present: warm, dry Results - Labs CBC & Chem 7: 08/05/19 23:36 08/05/19 23:36 Labs: Laboratory Last Values WBC 10.0 K/mm3 (4.5-11.0) 08/05/19 23:36 RBC 4.11 M/mm3 (3.65-5.03) 08/05/19 23:36 Hgb 13.3 gm/dl (10.1-14.3) 08/05/19 23:36 Hct 38.8 % (30.3-42.9) 08/05/19 23:36 MCV 94 fl (79-97) 08/05/19 23:36 MCH 32 pg (28-32) 08/05/19 23:36 MCHC 34 % (30-34) 08/05/19 23:36 RDW 14.1 % (13.2-15.2) 08/05/19 23:36 Plt Count 240 K/mm3 (140-440) 08/05/19 23:36 Lymph % (Auto) 23.5 % (13.4-35.0) 08/05/19 23:36 [place] % (Auto) 4.9 % (0.0-7.3) 08/05/19 23:36 Eos % (Auto) 0.9 % (0.0-4.3) 08/05/19 23:36 Baso % (Auto) 0.8 % (0.0-1.8) 08/05/19 23:36 Lymph # 2.3 K/mm3 (1.2-5.4) 08/05/19 23:36 [place] # 0.5 K/mm3 (0.0-0.8) 08/05/19 23:36 Eos # 0.1 K/mm3 (0.0-0.4) 08/05/19 23:36 Baso # 0.1 K/mm3 (0.0-0.1) 08/05/19 23:36 Seg Neutrophils % 69.9 % (40.0-70.0) 08/05/19 23:36 Seg Neutrophils # 7.0 K/mm3 (1.8-7.7) 08/05/19 23:36 PT 13.2 Sec. (12.2-14.9) 08/05/19 23:36 INR 0.99 (0.87-1.13) 08/05/19 23:36 APTT 25.2 Sec. (24.2-36.6) 08/05/19 23:36 D-Dimer 258.10 ng/mlDDU (0-234) H 08/05/19 23:36 Sodium 139 mmol/L (137-145) 08/05/19 23:36 Potassium 3.7 mmol/L (3.6-5.0) 08/05/19 23:36 Chloride 105.4 mmol/L (98-107) 08/05/19 23:36 Carbon Dioxide 19 mmol/L (22-30) L 08/05/19 23:36 Anion Gap 18 mmol/L 08/05/19 23:36 BUN 7 mg/dL (7-17) 08/05/19 23:36 Creatinine 0.6 mg/dL (0.7-1.2) L 08/05/19 23:36 Estimated GFR > 60 ml/min 08/05/19 23:36 BUN/Creatinine Ratio 12 % 08/05/19 23:36 Glucose 170 mg/dL (65-100) H 08/05/19 23:36 Lactic Acid 0.90 mmol/L (0.7-2.0) 08/05/19 23:36 Calcium 9.2 mg/dL (8.4-10.2) 08/05/19 23:36 Total Bilirubin 0.20 mg/dL (0.1-1.2) 08/05/19 23:36 Direct Bilirubin < 0.2 mg/dL (0-0.2) 08/05/19 23:36 Indirect Bilirubin 0.0 mg/dL 08/05/19 23:36 AST 21 units/L (5-40) 08/05/19 23:36 ALT 23 units/L (7-56) 08/05/19 23:36 Alkaline Phosphatase 62 units/L (35-129) 08/05/19 23:36 Ammonia 30.0 umol/L (25-60) 08/05/19 23:36 Total Creatine Kinase 103 units/L (30-135) 08/05/19 23:36 Troponin T < 0.010 ng/mL (0.00-0.029) 08/05/19 23:36 Total Protein 6.4 g/dL (6.3-8.2) 08/05/19 23:36 Albumin 4.0 g/dL (3.9-5) 08/05/19 23:36 Albumin/Globulin Ratio 1.7 % 08/05/19 23:36 HCG, Qual Negative (Negative) 08/05/19 23:41 Urine Color Yellow (Yellow) 08/06/19 01:06 Urine Turbidity Slightly-cloudy (Clear) 08/06/19 01:06 Urine pH 5.0 (5.0-7.0) 08/06/19 01:06 Ur Specific [place] 1.012 (1.003-1.030) 08/06/19 01:06 Urine Protein <15 mg/dl mg/dL (Negative) 08/06/19 01:06 Urine Glucose (UA) Neg mg/dL (Negative) 08/06/19 01:06 Urine Ketones Tr mg/dL (Negative) 08/06/19 01:06 Urine Blood Neg (Negative) 08/06/19 01:06 Urine Nitrite Neg (Negative) 08/06/19 01:06 Urine Bilirubin Neg (Negative) 08/06/19 01:06 Urine Urobilinogen < 2.0 mg/dL (<2.0) 08/06/19 01:06 Ur Leukocyte Esterase Tr (Negative) 08/06/19 01:06 Urine WBC (Auto) 5.0 /HPF (0.0-6.0) 08/06/19 01:06 Urine RBC (Auto) 1.0 /HPF (0.0-6.0) 08/06/19 01:06 U Epithel Cells (Auto) 4.0 /HPF (0-13.0) 08/06/19 01:06 Urine Bacteria (Auto) 1+ /HPF (Negative) 08/06/19 01:06 Urine Mucus Few /HPF 08/06/19 01:06 Salicylates < 0.3 mg/dL (2.8-20.0) L 08/05/19 23:36 Urine Opiates Screen Presumptive negative 08/06/19 01:06 Urine Methadone Screen Presumptive negative 08/06/19 01:06 Acetaminophen < 5.0 ug/mL (10.0-30.0) L 08/05/19 23:36 Ur Barbiturates Screen Presumptive negative 08/06/19 01:06 Ur Phencyclidine Scrn Presumptive negative 08/06/19 01:06 Ur Amphetamines Screen Presumptive negative 08/06/19 01:06 U Benzodiazepines Scrn Presumptive negative 08/06/19 01:06 Urine Cocaine Screen Presumptive negative 08/06/19 01:06 U Marijuana (THC) Screen Presumptive negative 08/06/19 01:06 Drugs of Abuse Note Disclamer 08/06/19 01:06 Plasma/Serum Alcohol < 0.01 % (0-0.07) 08/05/19 23:36 - Imaging and Cardiology EKG: report reviewed (Sinus tach) Assessment and Plan Assessment and plan: Encephalopathy, related to drug overdose -Possibly intentional, patient placed on psych hold in ER -Psych consult -Monitor labs -IVF History of depression -Resume home meds once reconciled -Supportive care -Outpatient monitoring of treatment should be established prior to and continue on after discharge Morbid obesity BMI 55.1 -Lifestyle modifications recommended DVT prophylaxis -SCDs bilaterally Plan of care discussed with patient/family: Yes
[2019-08-06] MEDS ORDERED: SODIUM CHLORIDE 0.9% 1000 ML 1,000 ML ONE (04:55)
--- NOTE | 2019-08-06 10:55 | Progress Note ---
Assessment and Plan Assessment and plan: Patient is a 38-year-old female with a past medical history of PTSD, depression and anxiety who presents to ER via EMS for overdose. EMS was reportedly called by boyfriend after patient was found to be weak and confused after saying that she was heading to the bathroom. Boyfriend reported that patient may have possible overdosed on prescribed meds of clonidine 0.1mg, amitriptyline 100 mg, Wellbutrin 200 mg and loratadine 10 mg. Poison control was called by the ER, patient drowsy, but arousable. obtunded but awakes to noxious stimuli. Will downgrade to [employer] WITH REMOTE TELE CTA CHEST IMPRESSION: 1. Technically limited study without evidence of pulmonary embolism or acute parenchymal process. XRAY: IMPRESSION: Normal left foot. Normal left knee Encephalopathy, related to drug overdose -Possibly intentional, patient placed on psych hold in ER -Psych consult -Monitor labs -IVF History of depression -Resume home meds once reconciled -Supportive care -Outpatient monitoring of treatment should be established prior to and continue on after discharge Morbid obesity BMI 55.1 -Lifestyle modifications recommended DVT prophylaxis -SCDs bilaterally History Interval history: Patient seen and examined admitted with overdose. She is still very lethargic but awakens to noxious and verbal stimuli. Hospitalist Physical - Physical exam Narrative exam: VITAL SIGNS: Reviewed. GENERAL: The patient appears normally developed, morbidly obese. Vital signs as documented. HEAD: No signs of head trauma. EYES: Pupils are equal. Extraocular motions intact. EARS: Hearing grossly intact. MOUTH: Oropharynx is normal. NECK: No adenopathy, no JVD. CHEST: Chest with clear breath sounds bilaterally. No wheezes, rales, or rhonchi. CARDIAC: Regular rate and rhythm. S1 and S2, without murmurs, gallops, or rubs. VASCULAR: No Edema. Peripheral pulses normal and equal in all extremities. ABDOMEN: Soft, non tender and non distended. No rebound or guarding, and no masses palpated. Bowel Sounds normal. MUSCULOSKELETAL: Good range of motion of all major joints. Extremities without clubbing, cyanosis or edema. NEUROLOGIC EXAM: Alert and oriented x 3 No focal sensory or strength deficits. Speech normal. Follows commands. PSYCHIATRIC: Mood normal. SKIN: detail exam as documented in skin assessment - Constitutional Vitals: Temp Pulse Resp BP Pulse Ox 97.8 F 102 H 27 H 129/79 99 08/05/19 22:15 08/06/19 07:45 08/06/19 07:45 08/06/19 07:45 08/06/19 07:45 General appearance: Present: obese Results - Labs CBC & Chem 7: 08/05/19 23:36 08/05/19 23:36 Labs: Laboratory Last Values WBC 10.0 K/mm3 (4.5-11.0) 08/05/19 23:36 RBC 4.11 M/mm3 (3.65-5.03) 08/05/19 23:36 Hgb 13.3 gm/dl (10.1-14.3) 08/05/19 23:36 Hct 38.8 % (30.3-42.9) 08/05/19 23:36 MCV 94 fl (79-97) 08/05/19 23:36 MCH 32 pg (28-32) 08/05/19 23:36 MCHC 34 % (30-34) 08/05/19 23:36 RDW 14.1 % (13.2-15.2) 08/05/19 23:36 Plt Count 240 K/mm3 (140-440) 08/05/19 23:36 Lymph % (Auto) 23.5 % (13.4-35.0) 08/05/19 23:36 [place] % (Auto) 4.9 % (0.0-7.3) 08/05/19 23:36 Eos % (Auto) 0.9 % (0.0-4.3) 08/05/19 23:36 Baso % (Auto) 0.8 % (0.0-1.8) 08/05/19 23:36 Lymph # 2.3 K/mm3 (1.2-5.4) 08/05/19 23:36 [place] # 0.5 K/mm3 (0.0-0.8) 08/05/19 23:36 Eos # 0.1 K/mm3 (0.0-0.4) 08/05/19 23:36 Baso # 0.1 K/mm3 (0.0-0.1) 08/05/19 23:36 Seg Neutrophils % 69.9 % (40.0-70.0) 08/05/19 23:36 Seg Neutrophils # 7.0 K/mm3 (1.8-7.7) 08/05/19 23:36 PT 13.2 Sec. (12.2-14.9) 08/05/19 23:36 INR 0.99 (0.87-1.13) 08/05/19 23:36 APTT 25.2 Sec. (24.2-36.6) 08/05/19 23:36 D-Dimer 258.10 ng/mlDDU (0-234) H 08/05/19 23:36 POC ABG pH 7.373 (7.35-7.45) 08/06/19 01:35 POC ABG pCO2 38.8 (35-45) 08/06/19 01:35 POC ABG pO2 139 (80-105) H 08/06/19 01:35 POC ABG HCO3 22.6 (22-26 mml/L) 08/06/19 01:35 POC ABG Total CO2 24 (23-27mmol/L) 08/06/19 01:35 POC ABG O2 Sat 99 08/06/19 01:35 POC ABG Base Excess -3 ((-2) - (+3)mmol/L) 08/06/19 01:35 FiO2 28 % 08/06/19 01:35 Sodium 139 mmol/L (137-145) 08/05/19 23:36 Potassium 3.7 mmol/L (3.6-5.0) 08/05/19 23:36 Chloride 105.4 mmol/L (98-107) 08/05/19 23:36 Carbon Dioxide 19 mmol/L (22-30) L 08/05/19 23:36 Anion Gap 18 mmol/L 08/05/19 23:36 BUN 7 mg/dL (7-17) 08/05/19 23:36 Creatinine 0.6 mg/dL (0.7-1.2) L 08/05/19 23:36 Estimated GFR > 60 ml/min 08/05/19 23:36 BUN/Creatinine Ratio 12 % 08/05/19 23:36 Glucose 170 mg/dL (65-100) H 08/05/19 23:36 Lactic Acid 0.90 mmol/L (0.7-2.0) 08/05/19 23:36 Calcium 9.2 mg/dL (8.4-10.2) 08/05/19 23:36 Magnesium 1.90 mg/dL (1.7-2.3) 08/06/19 05:45 Total Bilirubin 0.20 mg/dL (0.1-1.2) 08/05/19 23:36 Direct Bilirubin < 0.2 mg/dL (0-0.2) 08/05/19 23:36 Indirect Bilirubin 0.0 mg/dL 08/05/19 23:36 AST 21 units/L (5-40) 08/05/19 23:36 ALT 23 units/L (7-56) 08/05/19 23:36 Alkaline Phosphatase 62 units/L (35-129) 08/05/19 23:36 Ammonia 30.0 umol/L (25-60) 08/05/19 23:36 Total Creatine Kinase 103 units/L (30-135) 08/05/19 23:36 Troponin T < 0.010 ng/mL (0.00-0.029) 08/05/19 23:36 Total Protein 6.4 g/dL (6.3-8.2) 08/05/19 23:36 Albumin 4.0 g/dL (3.9-5) 08/05/19 23:36 Albumin/Globulin Ratio 1.7 % 08/05/19 23:36 HCG, Qual Negative (Negative) 08/05/19 23:41 Urine Color Yellow (Yellow) 08/06/19 01:06 Urine Turbidity Slightly-cloudy (Clear) 08/06/19 01:06 Urine pH 5.0 (5.0-7.0) 08/06/19 01:06 Ur Specific [place] 1.012 (1.003-1.030) 08/06/19 01:06 Urine Protein <15 mg/dl mg/dL (Negative) 08/06/19 01:06 Urine Glucose (UA) Neg mg/dL (Negative) 08/06/19 01:06 Urine Ketones Tr mg/dL (Negative) 08/06/19 01:06 Urine Blood Neg (Negative) 08/06/19 01:06 Urine Nitrite Neg (Negative) 08/06/19 01:06 Urine Bilirubin Neg (Negative) 08/06/19 01:06 Urine Urobilinogen < 2.0 mg/dL (<2.0) 08/06/19 01:06 Ur Leukocyte Esterase Tr (Negative) 08/06/19 01:06 Urine WBC (Auto) 5.0 /HPF (0.0-6.0) 08/06/19 01:06 Urine RBC (Auto) 1.0 /HPF (0.0-6.0) 08/06/19 01:06 U Epithel Cells (Auto) 4.0 /HPF (0-13.0) 08/06/19 01:06 Urine Bacteria (Auto) 1+ /HPF (Negative) 08/06/19 01:06 Urine Mucus Few /HPF 08/06/19 01:06 Salicylates < 0.3 mg/dL (2.8-20.0) L 08/05/19 23:36 Urine Opiates Screen Presumptive negative 08/06/19 01:06 Urine Methadone Screen Presumptive negative 08/06/19 01:06 Acetaminophen < 5.0 ug/mL (10.0-30.0) L 08/05/19 23:36 Ur Barbiturates Screen Presumptive negative 08/06/19 01:06 Ur Phencyclidine Scrn Presumptive negative 08/06/19 01:06 Ur Amphetamines Screen Presumptive negative 08/06/19 01:06 U Benzodiazepines Scrn Presumptive negative 08/06/19 01:06 Urine Cocaine Screen Presumptive negative 08/06/19 01:06 U Marijuana (THC) Screen Presumptive negative 08/06/19 01:06 Drugs of Abuse Note Disclamer 08/06/19 01:06 Plasma/Serum Alcohol < 0.01 % (0-0.07) 08/05/19 23:36 Active Medications - Current Medications Current Medications: Generic Name Dose Route Start Last Admin Trade Name Freq PRN Reason Stop Dose Admin Sodium Chloride 1,000 mls @ 75 mls/hr 08/06/19 05:00 Nacl 0.9% 1000 Ml IV DIRECT LASHAWN Sodium Chloride 10 ml 08/06/19 04:54 Sodium Chloride Flush Syringe 10 Ml IV PRN PRN LINE FLUSH
[2019-08-07] MEDS: SODIUM CHLORIDE 0.9% 1000 ML 1,000 ML IV SCH ×2 (02:30→13:22)
[2019-08-07] MEDS ORDERED: oxyCODONE /ACETAMINOPHEN 5-325MG TAB PO PRN (08:47)
--- NOTE | 2019-08-07 11:55 | Consultation ---
History of Present Illness - Reason for Consult Consult date: 08/07/19 Reason for consult: Suicidal attempt by OD - Chief Complaint Chief complaint: "Overdose per EMS - History of Present Psychiatric Illness History of Present Illness: Fabiola Schultz is a 38 y/o female patient who came in for suicidal attempt by OD on "elavil." During my interview this morning, the patient was in bed. Awake. A/o x 4. Sitter at bedside. The patient states she's been "stressed out and tired." She says her and her boys were evicted and she has "no place to go." She says when she took the medication she was "trying to make it all go away." Mrs. Schultz says she has had once suicide attempt about "about 20 years ago when her son was born." She says she has a history of "PTSD, depression and general anxiety disorder." She denies any elicit drug use, ETOH or nicotine abuse, stating "anything I've ever taken are medications prescribed to me." She denies SI/HI at the present times, stating "sitting here, I was upset that the plan didn't work. But I realized God didn't want me to go that way. I have two sons who need me and an autistic son who is probably worried to ." She then says, "I got to get home, and figure things out. I know I'm not suicidal now." She denies hallucinations of any kind. Mrs. Schultz states her mood is "okay. I'm not depressed, I'm okay." She denies any problems with her with her sleep or appetite. PAST PSYCHIATRIC HISTORY: Diagnoses: PTSD, depression generalized anxiety disorder Suicide attempts or Self-harm behavior: "1 time about 20 years ago" Prior psychiatric hospitalizations: Once Substance Abuse history: denies Previous psychiatric medications tried: Wellbutrin, xanax prn, elavil, celexa Outpatient treatment: "on a regular basis" REVIEW OF SYSTEMS Constitutional: Negative for weight loss ENT: Negative for stridor Respiratory: Negative for cough All other systems reviewed and are negative PAST MEDICAL HISTORY: None reported Family Psychiatric History None reported or documented SOCIAL HISTORY Marital Status: Living Arrangements: Homeless Employment Status: Unemployed Access to guns/weapons: Denies Education: Some college History of Abuse: Denies Legal History: Denies MSE Appearance: In bed. Appropriate clothing. Good eye contact Behavior: calm and cooperative Mood: "okay, I'm not depressed" Affect: consisted with mood Thought Process: Goal directed Speech: Normal tone and pace Thought Content Harmfulness Denies SI/HI Hallucinations: patient denies Delusions: none elicited Consciousness: Alert Cognition/Memory: Good Insight/Judgment: Fair Assessment: Major Depressive Disorder, Severe w/o psychotic features Treatment Plan No medications at this time Medical: Per primary team Disposition: The patient does not meet requirement for acute inpatient psychiatric hospitalization. May discharge home once medically cleared. Will sign off. Please call with any questions or concerns. Thank you for this consult. Medications and Allergies Allergies Allergy/AdvReac Type Severity Reaction Status Date / Time No Known Allergies Allergy Verified 06/16/18 18:35 Home Medications Medication Instructions Recorded Confirmed Last Taken Type Celexa 20 mg PO QAM 08/07/19 08/07/19 Unknown History Elavil 100 mg PO DAILY 08/07/19 08/07/19 Unknown History Wellbutrin 200 mg PO DAILY 08/07/19 08/07/19 Unknown History Xanax TAB 1 mg PO DAILY PRN 08/07/19 08/07/19 Unknown History cloNIDine 0.1 mg PO QHS 08/07/19 08/07/19 Unknown History Active Meds: Active Medications Sodium Chloride (Nacl 0.9% 1000 Ml) 1,000 mls @ 75 mls/hr IV DIRECT LASHAWN Last Admin: 08/07/19 02:30 Dose: 75 mls/hr Documented by: Oxycodone/Acetaminophen (Percocet 5/325) 1 tab PO Q6H PRN PRN Reason: Pain, Moderate (4-6) Last Admin: 08/07/19 09:38 Dose: 1 tab Documented by: Sodium Chloride (Sodium Chloride Flush Syringe 10 Ml) 10 ml IV PRN PRN PRN Reason: LINE FLUSH Mental Status Exam - Vital signs Last Vital Signs Temp 98.1 F 08/07/19 03:57 Pulse 105 H 08/07/19 03:57 Resp 20 08/07/19 03:57 BP 120/58 08/07/19 03:57 Pulse Ox 99 08/07/19 03:57 Results Result Diagrams: 08/05/19 23:36 08/05/19 23:36 All other labs normal.
[2019-08-07] MEDS ORDERED: XANAX 1 MG PO PRN (14:33)
--- NOTE | 2019-08-07 14:33 | Discharge Summary ---
Providers - Providers Date of Admission: 08/06/19 03:33 Attending physician: JULIANNE BOBBY MD 08/06/19 10:45 Consult to Mental Health [CONS] Routine Reason For Exam: overdose Place consult to:: mental health Notified:: REMY Phone number called:: [phone] Was contact made?: Yes If yes, spoke with:: REMY Time called:: 13:38 Primary care physician: ROBY CLARKE MD Hospitalization Condition: Stable Hospital course: Patient is a 38-year-old female with a past medical history of PTSD, depression and anxiety who presents to ER via EMS for overdose. EMS was reportedly called by boyfriend after patient was found to be weak and confused after saying that she was heading to the bathroom. Boyfriend reported that patient may have possible overdosed on prescribed meds of clonidine 0.1mg, amitriptyline 100 mg, Wellbutrin 200 mg and loratadine 10 mg. Poison control was called by the ER, patient drowsy, but arousable. obtunded but awakes to noxious stimuli. Will downgrade to [employer] WITH REMOTE TELE CTA CHEST IMPRESSION: 1. Technically limited study without evidence of pulmonary embolism or acute parenchymal process. XRAY: IMPRESSION: Normal left foot. Normal left knee Encephalopathy, related to drug overdose -Possibly intentional, patient placed on psych hold in ER -Psych consult -Monitor labs -IVF History of depression -Resume home meds once reconciled -Supportive care -Outpatient monitoring of treatment should be established prior to and continue on after discharge Morbid obesity BMI 55.1 -Lifestyle modifications recommended cleared by psych advanced care planning 30 mins Disposition: [id number] TO HOME OR SELFCARE Exam - Constitutional Vitals: Temp Pulse Resp BP Pulse Ox 98.1 F 105 H 20 120/58 99 08/07/19 03:57 08/07/19 03:57 08/07/19 03:57 08/07/19 03:57 08/07/19 03:57 Plan Activity: advance as tolerated, up only with assistance Diet: low fat Special Instructions: record daily weights, record daily BP diary Follow up with: GHANSHYAM BOWENS MD [Referring] - 3-5 Days [facility] [Outside] - 7 Days
[2019-08-07] MEDS ORDERED: WELLBUTRIN 200 MG PO SCH (14:45)
[2019-08-07] MEDS ORDERED: ELAVIL PO SCH (14:45)
[2019-08-07] MEDS ORDERED: ALPRAZolam 1 MG TAB PO PRN (14:51)
[2019-08-07] MEDS ORDERED: buPROPion 100 MG TAB PO SCH (15:00)
[2019-08-07 15:24] VITALS: BP 117/74
[2019-08-07] MEDS ORDERED: AMITRIPTYLINE 25 MG TAB PO SCH (22:00)
[2019-08-07] MEDS ORDERED: NON-FORMULARY EACH (Clonidine 0.1 MG) PO SCH (22:00)
[2019-08-07] MEDS ORDERED: cloNIDine 0.1 MG TAB PO SCH (22:00)
[2019-08-08] MEDS ORDERED: CITALOPRAM 20 MG TAB PO SCH (10:00)
[2019-08-08] MEDS ORDERED: CELEXA 20 MG PO SCH (10:00)
== END 2019-08-07 16:22 | disposition home or self-care (01) | DRG 918 ==
LOC: ED 22:02 → CC1 08-06 03:33 → 3A 08-06 11:07
PROVIDERS: ADMIT Internal Medicine Geriatric Medicine; ATTEND Internal Medicine
PROC: 4A033R1 Measurement of Arterial Saturation, Peripheral, Percutaneous Approach (ICD-10-PCS; principal; 2019-08-06)
DX: T46.5X2A Poisoning by other antihypertensive drugs, intentional self-harm, initial encounter (principal); Z68.43 Body mass index [BMI] 50.0-59.9, adult; T43.012A Poisoning by tricyclic antidepressants, intentional self-harm, initial encounter; T43.292A Poisoning by other antidepressants, intentional self-harm, initial encounter; T45.0X2A Poisoning by antiallergic and antiemetic drugs, intentional self-harm, initial encounter; E66.01 Morbid (severe) obesity due to excess calories; F32.9 Major depressive disorder, single episode, unspecified; F41.9 Anxiety disorder, unspecified; G43.909 Migraine, unspecified, not intractable, without status migrainosus; E66.9 Obesity, unspecified; F17.210 Nicotine dependence, cigarettes, uncomplicated; Y92.89 Other specified places as the place of occurrence of the external cause
CPT/HCPCS: 36415; 70450; 71275; 80048; 80076; 80307; 80320; 81001; 82140; 82550; 82803; 83735; 84484; 84703; 85025; 85379; 85610; 85730; 93005; 93010; 99406; G0378; G0480; J2060; J7030; Q9967